=== PATIENT | male | born 1985 | race Caucasian/White ===

== ENCOUNTER 2020-12-09 11:50 | Emergency (ER) | payer OTHER ==
[~2020-12-09] VITALS: Ht 188 cm; Wt 93.0 kg
[~2020-12-09 11:50] MED LIST: AMPH30TA3 PO; HYDR-4354 PO; PHEN100C4 PO
--- NOTE | 2020-12-09 12:00 | NUR ---
PT IS IN ROOM #2B. DR LERMA EVALUATED THE PT.
[2020-12-09] MEDS ORDERED: ENTRESTO (12:01)
[2020-12-09] MEDS ORDERED: SPIRONOLACTONE (12:01)
[2020-12-09] MEDS ORDERED: COREG (12:01)
[2020-12-09] MEDS ORDERED: DEXAMETHASONE SOD PHOSPHATE 4 MG INJ IM ONE (12:30)
[2020-12-09] MEDS ORDERED: ONDANSETRON ODT 4 MG TAB.RAPDIS SL ONE (12:30)
[2020-12-09] MEDS ORDERED: HYDROMORPHONE 1 MG/1 ML DISP.SYRIN IM ONE ×2 (12:30→14:15)
[2020-12-09] MEDS ORDERED: HYDROMORPHONE 1 MG/1 ML DISP.SYRIN ONE ×2 (12:35→14:20)
[2020-12-09] MEDS ORDERED: ONDANSETRON 4 MG/2 ML VIAL ONE (12:35)
[2020-12-09] MEDS ORDERED: DEXAMETHASONE SOD PHOSPHATE 10 MG INJ ONE (12:36)
[2020-12-09] MEDS ORDERED: HYDR-4209 PO (13:45)
[2020-12-09] MEDS ORDERED: DOCU240C PO (13:45)
[2020-12-09] MEDS ORDERED: PRED20TA PO (13:45)
--- NOTE | 2020-12-09 15:04 | NUR ---
PT WAS D/C'd TO HOME. D/C INSTRUCTIONS GIVEN TO THE PT BY DR LERMA.
[2020-12-09 15:05] VITALS: BP 136/81
== END 2020-12-09 15:07 | disposition home or self-care (01) ==
LOC: ER 11:52
DX: M54.42 Lumbago with sciatica, left side (principal); M54.41 Lumbago with sciatica, right side; R03.0 Elevated blood-pressure reading, without diagnosis of hypertension; Z86.74 Personal history of sudden cardiac arrest
CPT/HCPCS: 96372 ×2; 99284; J1100; J1170 ×2; J2405; A4663

== ENCOUNTER 2020-12-13 13:47 | Emergency (ER) | payer OTHER ==
[~2020-12-13] VITALS: Ht 188 cm; Wt 93.0 kg
[~2020-12-13 13:47] MED LIST changes: +COREG; +DOCU240C PO; +ENTRESTO; +HYDR-4209 PO; +PRED20TA PO; +SPIRONOLACTONE
--- NOTE | 2020-12-13 14:08 | NUR ---
DR WALDEN W/ PATIENT FOR EVALUATION.
[2020-12-13] MEDS ORDERED: DEXAMETHASONE SOD PHOSPHATE 4 MG INJ IM ONE (14:15)
[2020-12-13] MEDS ORDERED: DEXAMETHASONE SOD PHOSPHATE 10 MG INJ ONE (14:21)
--- NOTE | 2020-12-13 14:24 | NUR ---
Patient discharged to home in stable condition with steady gait. Written and verbal after care instructions given to patient. Patient verbalized understanding & compliance of instructions. Stressed follow up with workman's compensation medical provider or return to ER for worsening s/s.
== END 2020-12-13 14:25 | disposition home or self-care (01) ==
LOC: ER 13:48
DX: M54.42 Lumbago with sciatica, left side (principal); M54.41 Lumbago with sciatica, right side
CPT/HCPCS: 96372; 99283; J1100; A4663